=== PATIENT | female | born 1975 | race Caucasian/White ===

== ENCOUNTER 2023-07-09 21:19 | Emergency (ER) | payer BC, OTHER ==
[~2023-07-09] VITALS: Ht 157.5 cm; Wt 85.3 kg
[~2023-07-09 21:19] MED LIST: FLUO20CA36 PO
[2023-07-09] MEDS ORDERED: KETOROLAC TROMETHAMINE INJ 30 MG/ML VIAL ONE (22:10)
[2023-07-09] MEDS ORDERED: ACETAMINOPHEN ES 500 MG TABLET ONE (22:10)
[2023-07-09 22:23] VITALS: BP 121/63; TEMP 98.2; O2SAT 98
[2023-07-09] MEDS ORDERED: KETOROLAC TROMETHAMINE INJ 60 MG/2 ML VIAL IM ONE (22:30)
[2023-07-09] MEDS ORDERED: ACETAMINOPHEN ES 500 MG TABLET PO ONE (22:30)
== END 2023-07-09 22:24 | disposition home or self-care (01) ==
LOC: ER 21:19
DX: S86.812A Strain of other muscle(s) and tendon(s) at lower leg level, left leg, initial encounter (principal); Z79.899 Other long term (current) drug therapy; W01.0XXA Fall on same level from slipping, tripping and stumbling without subsequent striking against object, initial encounter; Y93.89 Activity, other specified; Y92.89 Other specified places as the place of occurrence of the external cause; Y99.8 Other external cause status
CPT/HCPCS: 99283; 96372; J1885